=== PATIENT | female | born 1950 | race Caucasian/White ===

== ENCOUNTER 2018-09-28 16:21 | Observation (INO) | payer OTHER ==
[2018-09-28 16:49] VITALS: BMI 31.4
[2018-09-28] MEDS ORDERED: traMADol HCl 50 MG TAB PO SCH (18:15)
[2018-09-28] MEDS ORDERED: Ondansetron ODT 4 MG TAB PO PRN (18:19)
[2018-09-28] MEDS ORDERED: Acetaminophen 325 MG TAB PO PRN (18:19)
[2018-09-28] MEDS ORDERED: Ondansetron PF 4 MG/2 ML Vial IVP PRN (18:19)
[2018-09-28] MEDS ORDERED: Sodium Chloride 0.9% 1,000 ML IV SCH (18:30)
[2018-09-28] MEDS ORDERED: Fioricet 325/50/40 mg Tablet PO PRN (19:04)
[2018-09-28] MEDS ORDERED: Zolpidem Tartrate 5 MG TAB PO PRN (19:05)
[2018-09-28 19:44] LABS: #Eosinphils 0.1 thou/uL (0.0-0.7); #Lymphocytes 1.6 thou/uL (1.20-3.40); #Monocytes 0.8 thou/uL (0.11-0.59); #Neutrophils 6.5 thou/uL (1.40-6.50); %Basophils 0.1 % (0.0-1.0); %Eosinophils 1.5 % (0.0-10.0); %Lymphocytes 17.8 % (21.0-51.0); %Monocytes 8.4 % (0.0-10.0); %Neutrophils 72.3 % (42.0-75.0); Hemoglobin 10.4 g/dL (12.0-16.0); Mean Corpuscular HGB CONC 31.8 g/dL (32.0-36.0); Mean Corpuscular Hemoglobin 23.4 pg (27.0-31.0); Mean Corpuscular Volume 73.7 fL (78.0-98.0); Mean Platelet Volume 7.6 fL (7.4-10.4); Platelet Count 423 thou/uL (130-400); RBC Distribution Width 16.3 % (11.5-14.5); Red Blood Cell (RBC) Count 4.46 mill/uL (4.20-5.40)
[2018-09-28 20:07] LABS: ALT (SGPT) 18 U/L (8-55); AST (SGOT) 29 U/L (5-34); Albumin 3.9 g/dL (3.4-4.8); Alkaline Phosphatase 193 U/L (40-150); Anion Gap 18 mmol/L (10-20); BUN (Urea Nitrogen) 32 mg/dL (9.8-20.1); Bilirubin, Total 0.4 mg/dL (0.2-1.2); Calc. Creatinine Clearance 52 mL/min (70-130); Calcium 9.6 mg/dL (7.8-10.44); Carbon Dioxide 26 mmol/L (23-31); Chloride 91 mmol/L (98-107); Estimated GFR-MDRD 44; Globulin 4.2 g/dL (2.4-3.5); Glucose 131 mg/dL (80-115); Potassium 4.3 mmol/L (3.5-5.1); Protein, Total 8.1 g/dL (6.0-8.3); Sodium 131 mmol/L (136-145)
[2018-09-28 20:10] LABS: Anisocytosis SLIGHT = 6-15 cells (100X) (0-5/hpf); Hypochromia SLIGHT = 6-15 cells (100X) (0-5/hpf); MDiff Complete? YES; Microcytosis SLIGHT = 6-15 cells (100X) (0-5/hpf); Ovalocytes SLIGHT = 2-5 cells (100X) (0-1/hpf); PLT Morphology Comment Appears Increased; Polychromasia SLIGHT = 2-3 cells (100X) (0-2/hpf)
[2018-09-28] MEDS ORDERED: Atorvastatin Calcium 40 MG TAB PO SCH (21:00)
[2018-09-28] MEDS: Senokot S 8.6-50 MG TAB PO SCH (21:30)
--- NOTE | 2018-09-28 23:04 | ULT ---
CAROTID ULTRASOUND: 09/28/18 HISTORY: Transient ischemic attack. COMPARISON: None. TECHNIQUE: Pate scale, color flow, doppler imaging with spectral waveform analysis performed in the carotid and vertebral arteries. FINDINGS: There is calcified plaque in the right carotid bifurcation and proximal internal carotid artery. Peak systolic velocity in the common carotid artery is 173.2 cm/s. Peak systolic velocity in the internal carotid artery is 331.7 cm/s. Systolic ICA/CCA ratio is 1.92. LEFT CAROTID: There is minimal noncalcified plaque in the left carotid bifurcation. Peak systolic velocity in the c ommon carotid artery is 105 cm/s. Peak systolic velocity in the internal carotid artery is 142 cm/s. Systolic ICA/CCA ratio is 1.4. Antegrade flow in both vertebral arteries. IMPRESSION: Sonographic evidence of severe (greater than 70%) stenosis involving the right internal carotid arter y. Further interrogation with CT angiogram of the neck is recommended. POS: [facility]
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
[2018-09-29] MEDS: traMADol HCl 50 MG TAB PO PRN ×3 (02:05→16:14)
[2018-09-29 05:11] LABS: #Eosinphils 0.2 thou/uL (0.0-0.7); #Lymphocytes 2.6 thou/uL (1.20-3.40); #Monocytes 1.3 thou/uL (0.11-0.59); #Neutrophils 5.5 thou/uL (1.40-6.50); %Basophils 0.5 % (0.0-1.0); %Eosinophils 2.2 % (0.0-10.0); %Lymphocytes 27.4 % (21.0-51.0); %Monocytes 13.4 % (0.0-10.0); %Neutrophils 56.6 % (42.0-75.0); Mean Corpuscular Hemoglobin 23.6 pg (27.0-31.0); Mean Corpuscular Volume 73.9 fL (78.0-98.0); Mean Platelet Volume 7.6 fL (7.4-10.4); Platelet Count 403 thou/uL (130-400); RBC Distribution Width 16.4 % (11.5-14.5); Red Blood Cell (RBC) Count 4.22 mill/uL (4.20-5.40); White Blood Cell (WBC) Count 9.7 thou/uL (4.8-10.8)
[2018-09-29 05:26] LABS: ALT (SGPT) 16 U/L (8-55); AST (SGOT) 23 U/L (5-34); Albumin 3.7 g/dL (3.4-4.8); Alkaline Phosphatase 177 U/L (40-150); Anion Gap 15 mmol/L (10-20); BUN (Urea Nitrogen) 36 mg/dL (9.8-20.1); Bilirubin, Total 0.3 mg/dL (0.2-1.2); Calc. Creatinine Clearance 57 mL/min (70-130); Calcium 9.7 mg/dL (7.8-10.44); Carbon Dioxide 30 mmol/L (23-31); Cardiac Risk 5.6 (Less than 4.5); Chloride 93 mmol/L (98-107); Cholesterol 202 mg/dl (< 200 Desired); Estimated GFR-MDRD 48; Globulin 3.8 g/dL (2.4-3.5); Glucose 113 mg/dL (80-115); HDL Cholesterol 36 mg/dL (>60 Neg Risk); LDL Cholesterol, Calculated 134 mg/dL; Potassium 4.2 mmol/L (3.5-5.1); Protein, Total 7.5 g/dL (6.0-8.3); Sodium 134 mmol/L (136-145); Triglycerides 159 mg/dL (Less than 150)
--- NOTE | 2018-09-29 08:06 | PDOC.PN ---
- Subjective Encounter Start Date: 09/29/18 Encounter Start Time: 08:05 Subjective: Feeling significantly better. Back to baseline. Mobilising independently. -: No headaches, vision changes. No n/v. Denies abdo pain. Eating/drinking. -: Denies any CP, sob. No weakness, dizziness, or paraesthesias. Constipated. - Objective Vital Signs & Weight: Vital Signs (12 hours) Temp Pulse Resp BP Pulse Ox 09/29/18 07:41 98.4 F 85 18 135/62 91 L 09/29/18 03:46 98.9 F 79 16 130/60 94 L 09/29/18 00:20 98.5 F 87 16 129/59 L 94 L Weight Weight 160 lb I&O: 09/28/18 09/29/18 09/30/18 06:59 06:59 06:59 Intake Total 240 Balance 240 Result Diagrams: 09/29/18 04:36 09/29/18 04:36 Phys Exam - Physical Examination Constitutional: NAD HEENT: PERRLA, moist MMs, sclera anicteric, oral pharynx no lesions Neck: no nodes, supple, full ROM Respiratory: clear to auscultation bilateral Cardiovascular: RRR Gastrointestinal: soft, non-tender, no distention, positive bowel sounds Musculoskeletal: no edema, pulses present Neurological: non-focal, normal sensation, moves all 4 limbs Strength 5/5 in all limbs. No cerebellar signs. Gait normal. Psychiatric: normal affect, A&O x 3 Skin: no rash, cap refill <2 seconds Dx/Plan - Plan cont current plan of care Senna 2 tab PO BID for constipation. -: Awaiting Neuro and Brain MRI. -: S/p Carotid US: >70% stenosis in Right carotid. -: CTA Head/neck requested. * .
[2018-09-29] MEDS: Senokot S 8.6-50 MG TAB PO SCH (09:22)
[2018-09-29 11:35] VITALS: TEMP 98.3
--- NOTE | 2018-09-29 12:29 | MRI ---
MRI BRAIN NONCONTRAST: History TIA. FINDINGS: There is no evidence of acute intracranial hemorrhage or infarct. Ventricles appear normal in size, shape, and position. There is no mass effect or shift of midline structures. Mild chronic ischemic small vessel changes throughout the periventricular white matter of each cerebral hemisphere. Mucosa l thickening left mastoid air cells. IMPRESSION: No acute intracranial abnormalities are demonstrated. POS: [facility]
--- NOTE | 2018-09-29 13:42 | CT ---
CT ARTERIOGRAM NECK WITH IV CONTRAST AND 3D MIP IMAGING CT ARTERIOGRAM HEAD WITH IV CONTRAST AND 3D MIP IMAGING CT BRAIN WITH AND WITHOUT IV CONTRAST: HISTORY: There is no evidence of acute intracranial hemorrhage or infarct. Ventricles appear normal in size, shape, and position. There is no mass effect, shift of midline structures, or abnormal areas of cont rast enhancement. Normal branching of the great vessels at the aortic arch. Reactive-appearing lymph nodes within the partially visualized upper mediastinum. Mild arterial calcification at the aortic arch. Good flow i nto each carotid and vertebral system. At the right carotid bifurcation, there is prominent calcification short-segment focus of approximate ly 85% stenosis. Within the mid right cervical ICA, there is prominent calcified and noncalcified pl aque with a long segment area of high-grade stenosis estimated at 90%. Good flow into the intracrani al system. On the left, mild plaque without significant stenosis of the carotid system. [place] is intact. Good flow into each cerebral and cerebellar system. IMPRESSION: Prominent plaque limited to the right carotid system where there is multifocal high-grade stenoses of the right internal carotid artery. POS: [facility]
[2018-09-29] MEDS ORDERED: Iopamidol 370 76% 100 ML VIAL ONE (14:34)
[2018-09-29 16:11] VITALS: BP 133/63
--- NOTE | 2018-09-29 19:59 | DIS ---
DATE OF ADMISSION: 09/28/2018 DATE OF DISCHARGE: 09/29/2018 DISCHARGE DIAGNOSES: 1. Transient ischemic attack with symptoms completely resolved. 2. Constipation. 3. Hypertension. 4. Hyperlipidemia. 5. Chronic diastolic congestive heart failure. CONSULTING PHYSICIANS: Neuro via telemedicine. HOSPITAL COURSE & ROS: Ms. Han is a 67-year-old woman, who was transferred here from [place] yesterday on September 28 after developing stroke-like symptoms immediately after waking. It is unclear what time she woke up, but she states she experienced tingling and weakness in her right hand as well as right leg with slurred speech and difficulty forming words. Per outside notes, she was noted to have a facial droop on the right side as well as deviation of her tongue to the right. The patient was immediately transferred to the critical care unit. She underwent a CT of the head that showed no acute changes. The patient states her symptoms gradually improved throughout the day. Her transfer was arranged to come here per the request of her daughter. Upon arrival here, the patient had a complete resolution of the right-sided weakness and paresthesias. She also had improvement in her vision. She had a slightly slurred speech, but no facial drooping or tongue deviation on exam. She was able to stand and showed no cerebellar signs. Her vision was intact. She underwent further investigations with an MRI of the brain that showed no acute abnormalities. She did undergo a carotid Doppler that demonstrated greater than 70% stenosis in the right internal carotid artery, felt to be severe. Further imaging was recommended. She underwent a CT angiography of the head and neck, which showed a prominent plaque in the right carotid system with multifocal high-grade stenosis of the right internal carotid artery. The patient was assessed for swallowing difficulties upon initial arrival and had a satisfactory bedside swallow assessment. She has continued to tolerate a regular diet without any difficulties. At this time, the patient feels completely well and with no residual symptoms whatsoever. Her speech has fully normalized. She denies having any weakness whatsoever and has been mobilizing to and from the toilet without any difficulty. She is very eager to go home. Of note, the patient had been in [place] after being re-admitted with acute on chronic CHF, presumed to be due to incorrectly taking her medications. She was given recommendations for appropriate management of her CHF, which she understands and will continue as an outpatient. The patient's case was discussed with Dr. Shanks, who did advise a followup with Dr. Skaggs as an outpatient. It was felt she did not require intervention. The patient is doing well as mentioned above. She has been urinating without difficulties. Denies having any constipation or diarrhea. No headaches or dizziness. Denies having any chest pain, palpitations, or shortness of breath. All other review of systems are negative. PHYSICAL EXAMINATION: GENERAL: The patient appears comfortable, lying in bed, in no acute distress. VITAL SIGNS: Temperature 98.3, pulse 73, respirations 20, O2 saturation 93% on room air, and blood pressure 132/63. HEENT: Normocephalic and atraumatic. Pupils are equal, round, and reactive to light. Sclerae without icterus. Oropharynx is clear. NECK: Supple without lymphadenopathy. LUNGS: Clear to auscultation bilaterally. CARDIAC: Regular rhythm. ABDOMEN: Soft, nontender, and nondistended with bowel sounds present. EXTREMITIES: No clubbing, cyanosis, or edema. NEUROLOGIC: Alert and oriented x3. No facial weakness or numbness. Facial movements are normal. Power 5/5 in all limbs. Normal gait. No tongue deviation. LABORATORY DATA: White blood count 9.7, hemoglobin 10, hematocrit 31.2, and platelets 403. Sodium 134, potassium 4.2, BUN 36, creatinine 1.13, EGFR 48, total bilirubin 0.3, AST 23, and ALT 16. BNP 147.8. Albumin 3.7, triglycerides 159, cholesterol 202, LDL 134, and HDL 36. IMAGING DATA: 1. Carotid Doppler study 09/28/2018: Sonographic evidence of severe greater than 70% stenosis involving the right internal carotid artery. CT angiogram of the neck recommended. 2. CT angiography of the head and neck showed prominent plaque noted to the right carotid system with multifocal high-grade stenosis of the right internal carotid artery. Good flow into the intracranial system. [place] of [place] is intact. Good flow into each cerebral and cerebellar system. 3. Brain MRI, 09/29/2018, no acute intracranial abnormalities demonstrated. PROCEDURES: None. DISCHARGE MEDICATIONS: Prescriptions given for; 1. Atorvastatin 40 mg p.o. at bedtime. 2. Senokot 2 tablets p.o. b.i.d. 3. Aspirin 81 mg p.o. daily. The patient advised to resume home medications. CONDITION: Stable at discharge. ACTIVITY: As tolerated. DIET: Heart healthy diet. FOLLOWUP: The patient was advised to follow up with her primary care physician within 1 to 2 weeks. Also to follow up with Dr. Skaggs for discussion of surgical interventions given the high-grade stenosis in the right internal carotid artery. DISPOSITION: The patient cleared for discharge home on 09/29/2018. Job ID: [id number] [facility]
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
== END 2018-09-29 16:49 | disposition home or self-care (01) ==
LOC: 2SE 16:21
PROVIDERS: ADMIT Internal Medicine; ATTEND Internal Medicine
DX: G45.9 Transient cerebral ischemic attack, unspecified (principal); K59.00 Constipation, unspecified; I11.0 Hypertensive heart disease with heart failure; I50.32 Chronic diastolic (congestive) heart failure; E78.5 Hyperlipidemia, unspecified; G43.909 Migraine, unspecified, not intractable, without status migrainosus; Z87.891 Personal history of nicotine dependence; Z86.12 Personal history of poliomyelitis; Z88.1 Allergy status to other antibiotic agents; Z88.8 Allergy status to other drugs, medicaments and biological substances; Z91.018 Allergy to other foods; Z90.49 Acquired absence of other specified parts of digestive tract; Z90.710 Acquired absence of both cervix and uterus; Z90.89 Acquired absence of other organs; Z79.2 Long term (current) use of antibiotics; Z79.51 Long term (current) use of inhaled steroids; Z79.82 Long term (current) use of aspirin; Z79.899 Other long term (current) drug therapy; Z98.890 Other specified postprocedural states
CPT/HCPCS: 36415; 70496; 70498; 70551; 80053; 80061; 83880; 85025; 93005; 93010; 93880; G0378; G8978-GP-CK; G8979-GP-CK; G8980-GP-CK

== ENCOUNTER 2018-11-19 06:21 | Inpatient (IN) | payer OTHER ==
[2018-11-19] MEDS ORDERED: Protamine Sulfate 50 MG/5 ML VIAL ONE (06:26)
[2018-11-19] MEDS ORDERED: Heparin 5,000 UNITS/ML VIAL ONE (06:26)
[2018-11-19] MEDS ORDERED: Scopolamine 1.5 mg/72 hour Patch ONE (07:12)
[2018-11-19 07:30] LABS: #Eosinphils 0.2 thou/uL (0.0-0.7); #Lymphocytes 2.2 thou/uL (1.20-3.40); #Monocytes 0.6 thou/uL (0.11-0.59); #Neutrophils 4.4 thou/uL (1.40-6.50); %Basophils 0.2 % (0.0-1.0); %Lymphocytes 29.3 % (21.0-51.0); %Monocytes 7.6 % (0.0-10.0); %Neutrophils 59.9 % (42.0-75.0); Hemoglobin 10.5 g/dL (12.0-16.0); Mean Corpuscular HGB CONC 31.7 g/dL (32.0-36.0); Mean Corpuscular Hemoglobin 23.8 pg (27.0-31.0); Mean Corpuscular Volume 75.1 fL (78.0-98.0); Mean Platelet Volume 8.5 fL (7.4-10.4); Platelet Count 307 thou/uL (130-400); RBC Distribution Width 17.2 % (11.5-14.5); Red Blood Cell (RBC) Count 4.39 mill/uL (4.20-5.40); White Blood Cell (WBC) Count 7.4 thou/uL (4.8-10.8)
[2018-11-19 07:47] LABS: Anion Gap 14 mmol/L (10-20); BUN (Urea Nitrogen) 31 mg/dL (9.8-20.1); Calc. Creatinine Clearance 65 mL/min (70-130); Calcium 10.3 mg/dL (7.8-10.44); Carbon Dioxide 20 mmol/L (23-31); Chloride 106 mmol/L (98-107); Estimated GFR-MDRD 57; Glucose 97 mg/dL (80-115); Potassium 4.3 mmol/L (3.5-5.1); Sodium 136 mmol/L (136-145)
[2018-11-19] MEDS ORDERED: Fentanyl 100 MCG/2 ML VIAL ONE ×2 (07:51→10:42)
[2018-11-19] MEDS ORDERED: Bupivacaine 0.25% HCL 30 ML VIAL ONE (08:14)
[2018-11-19] MEDS ORDERED: Bupivacaine HCl 0.5%/Epinephrine 1:200,000/PF 30 ml Vial ONE (08:14)
[2018-11-19] MEDS ORDERED: Promethazine HCl 25 MG/ML VIAL IM PRN (10:10)
[2018-11-19] MEDS ORDERED: PACU-Morphine 4MG/ML VIAL SLOW IVP PRN (10:10)
[2018-11-19] MEDS ORDERED: Meperidine HCl/PF 25 MG/ML VIAL SLOW IVP PRN (10:10)
[2018-11-19] MEDS ORDERED: Promethazine HCl 25 MG/ML VIAL SLOW IVP PRN (10:10)
--- NOTE | 2018-11-19 10:13 | OP ---
DATE OF PROCEDURE: 11/19/2018 PREOPERATIVE DIAGNOSIS: Critical right carotid stenosis. PROCEDURE PERFORMED: Right carotid endarterectomy with bovine patch angioplasty. ANESTHESIA: General. ESTIMATED BLOOD LOSS: Less than 100. DESCRIPTION OF PROCEDURE: After adequate anesthesia had been obtained, the patient was prepped and draped. Ultrasound had been utilized to chad the site of the bifurcation. The incision was carried through the platysma, rotating sternocleidomastoid muscle laterally. The common carotid artery was isolated with the tape and then dissection carried distally to the level of the hypoglossal nerve. The stylohyoid muscle was mobilized inferiorly. Superiorly, the incision was extended slightly due to the fact that the patient had two discrete lesions on CT scan at the bulb and then about 2 to 2.5 cm distally. After 7500 units of heparin with a good ACT level, clamps were applied. Arteriotomy performed. Somewhat difficult to cut through the plaque in the distal anastomosis resulting in a slight spiral of the incision. Following placement of a 10-Persian shunt with excellent backbleeding, endarterectomy was performed. The tapering was satisfactory distally and no tacking sutures were required. After irrigating any loose debris, the artery was closed with a bovine patch using running 6-0 Prolene suture. Prior to completing the suture line, the shunt was removed. The vessels were backflushed and forward flushed and then flow restored up the external and then internal carotid artery. Protamine was given to partially reverse the heparin and after obtaining hemostasis, the wound was closed in layers after infiltrating 0.5% Marcaine with epinephrine into the wound. The patient tolerated the procedure. Job ID: [id number]
[2018-11-19] MEDS ORDERED: hydrALAZINE 20 MG/ML VIAL ONE (10:32)
[2018-11-19] MEDS ORDERED: Nitroglycerin 50 MG/250 ML BOT 250 ML IVPB PRN (11:05)
[2018-11-19] MEDS ORDERED: Fentanyl 100 MCG/2 ML VIAL SLOW IVP PRN ×2 (11:05)
[2018-11-19] MEDS ORDERED: Ondansetron PF 4 MG/2 ML Vial IVP PRN (11:05)
[2018-11-19] MEDS ORDERED: CEFAZOLIN/Water 2 GM/20 ML SYRINGE SLOW IVP SCH (11:05)
[2018-11-19] MEDS ORDERED: HYDROcodone/Acetaminophen 5/325 mg Tablet PO PRN ×2 (11:05)
[2018-11-19] MEDS ORDERED: Phenylephrine 10 MG/NS 250 ML 250 ML IVPB PRN (11:05)
[2018-11-19] MEDS: Sodium Chloride 0.9% 1,000 ML IV SCH (11:36)
[2018-11-19] MEDS: Promethazine HCl 25 MG/ML VIAL SLOW IVP PRN ×3 (11:46→23:00)
[2018-11-19 12:16] VITALS: BMI 32.5
[2018-11-19] MEDS: CEFAZOLIN 2 GM in Premix Bag 1 BAG IVPB SCH ×2 (14:23→23:00)
[2018-11-19] MEDS: hydrALAZINE 20 MG/ML VIAL SLOW IVP PRN ×2 (14:24→23:06)
[2018-11-19] MEDS ORDERED: Glycopyrrolate 0.2 MG/ML 5 ML SYRINGE ONE (15:02)
[2018-11-19] MEDS ORDERED: Lidocaine 1% PF 5 ML VIAL ONE (15:02)
[2018-11-19] MEDS ORDERED: Heparin 10,000 UNITS/ 10 ML VIAL ONE (15:02)
[2018-11-19] MEDS ORDERED: PROPOFOL 200 MG/20 ML VIAL ONE (15:02)
[2018-11-19] MEDS ORDERED: Ondansetron PF 4 MG/2 ML Vial ONE (15:02)
[2018-11-19] MEDS ORDERED: Rocuronium Bromide 10 MG/ML (10ML VIAL) ONE (15:02)
[2018-11-19] MEDS ORDERED: traMADol HCl 50 MG TAB PO PRN (16:07)
[2018-11-19] MEDS ORDERED: Acetaminophen 1,000 MG in Premix Bag 1 BAG IVPB SCH (16:15)
[2018-11-19] MEDS: Acetaminophen 325 MG TAB PO PRN (19:52)
[2018-11-19] MEDS: Acetaminophen 1,000 MG in Premix Bag 1 BAG IVPB PRN (21:16)
[2018-11-19] MEDS: Ondansetron PF 4 MG/2 ML Vial IVP PRN (21:16)
[2018-11-20] MEDS: Ondansetron PF 4 MG/2 ML Vial IVP PRN ×3 (02:11→16:20)
[2018-11-20] MEDS: Promethazine HCl 25 MG/ML VIAL SLOW IVP PRN ×2 (04:32→10:39)
[2018-11-20] MEDS: Acetaminophen 1,000 MG in Premix Bag 1 BAG IVPB PRN (04:38)
[2018-11-20] MEDS ORDERED: Zolpidem Tartrate 5 MG TAB PO PRN (07:08)
[2018-11-20] MEDS: Aspirin Chewable 81 MG TAB PO SCH (07:45)
[2018-11-20] MEDS: Carvedilol 3.125 MG TAB PO SCH ×2 (07:45→16:20)
[2018-11-20] MEDS: CEFAZOLIN 2 GM in Premix Bag 1 BAG IVPB SCH (07:46)
[2018-11-20] MEDS: Sodium Chloride 0.9% 1,000 ML IV SCH (08:32)
[2018-11-20 10:28] LABS: #Monocytes 0.7 thou/uL (0.11-0.59); #Neutrophils 8.8 thou/uL (1.40-6.50); %Basophils 0.1 % (0.0-1.0); %Eosinophils 0.2 % (0.0-10.0); %Lymphocytes 9.6 % (21.0-51.0); %Monocytes 6.3 % (0.0-10.0); %Neutrophils 83.9 % (42.0-75.0); Hemoglobin 9.7 g/dL (12.0-16.0); Mean Corpuscular HGB CONC 31.1 g/dL (32.0-36.0); Mean Corpuscular Hemoglobin 23.9 pg (27.0-31.0); Mean Corpuscular Volume 76.9 fL (78.0-98.0); Mean Platelet Volume 7.8 fL (7.4-10.4); Platelet Count 368 thou/uL (130-400); RBC Distribution Width 17.5 % (11.5-14.5); Red Blood Cell (RBC) Count 4.06 mill/uL (4.20-5.40); White Blood Cell (WBC) Count 10.5 thou/uL (4.8-10.8)
[2018-11-20] MEDS: Ibuprofen 800 MG TAB PO PRN ×2 (10:38→18:04)
[2018-11-20 10:45] LABS: Anion Gap 12 mmol/L (10-20); BUN (Urea Nitrogen) 13 mg/dL (9.8-20.1); Calc. Creatinine Clearance 80 mL/min (70-130); Calcium 9.3 mg/dL (7.8-10.44); Carbon Dioxide 24 mmol/L (23-31); Chloride 102 mmol/L (98-107); Estimated GFR-MDRD 70; Glucose 127 mg/dL (80-115); Sodium 134 mmol/L (136-145)
--- NOTE | 2018-11-20 15:33 | CT ---
CT BRAIN NONCONTRAST: 11/20/18 HISTORY: 68-year-old female with headache. FINDINGS: There is no midline shift or any other mass effect. There is no evidence of acute intracranial hemor rhage, large cortical infarct, obstructive hydrocephalus, or extraaxial fluid collection. The calvar ium is intact. There is a tiny focal hypodensity in the head of the left caudate nucleus, and one in the right basal ganglia. Small patchy subtle ill-defined regions of low attenuation in the deep cere bral white matter bilaterally probably representing either mild to moderate chronic white matter isc hemic white matter changes or additional white matter lacunar infarctions. IMPRESSION: 1. No acute intracranial findings. 2. Tiny old lacunar infarction in left caudate nucleus and right basal ganglia. jn [] POS: [facility]
[2018-11-20] MEDS: Ondansetron ODT 4 MG TAB PO PRN (19:37)
[2018-11-21] MEDS: Acetaminophen 325 MG TAB PO PRN ×2 (00:12→04:10)
[2018-11-21] MEDS: Ondansetron ODT 4 MG TAB PO PRN ×2 (00:15→04:10)
[2018-11-21 05:33] VITALS: TEMP 97.9
[2018-11-21 07:40] VITALS: BP 159/66
[2018-11-21] MEDS: Aspirin Chewable 81 MG TAB PO SCH (08:55)
[2018-11-21] MEDS: Carvedilol 3.125 MG TAB PO SCH (08:55)
[2018-11-21] MEDS: Ibuprofen 800 MG TAB PO PRN (08:57)
--- NOTE | 2018-11-21 10:24 | DIS ---
DATE OF ADMISSION: 11/19/2018 DATE OF DISCHARGE: 11/21/2018 This is a 68-year-old female with a critical right carotid stenosis that was found after a left hemispheric TIA. She was admitted at this time and underwent a right carotid endarterectomy with two critical lesions in the common and internal carotid arteries by about 2.5 cm. Postoperative course was notable as predicted based on her past history of nausea after anesthetics, with profound nausea for the 1st 24 hours. This improved slightly over the next 24 hours. She had an accompanying bifrontal and bimaxillary headache. A CT scan was scheduled to rule out any cerebral edema. However, the patient could not get in the CT scanner due to claustrophobia. Neurologic exam was otherwise normal. She will be discharged today to resume her home medicines with the addition of low-dose Coreg for a resting tachycardia, some vxrc-mc-ehpcoyti hypertension which we would like to avoid at this time. No pain medicines would be prescribed. Her incision is healing nicely with some legu-tj-ybiszutn swelling. Discharge and followup instructions were given. Job ID: [id number]
--- NOTE | 2018-11-22 06:59 | EKG ---
Test Reason : Blood Pressure : / mmHG Vent. Rate : 099 BPM Atrial Rate : 099 BPM P-R Int : 168 ms QRS Dur : 094 ms QT Int : 364 ms P-R-T Axes : 068 004 041 degrees QTc Int : 467 ms Sinus rhythm with Premature supraventricular complexes and with occasional Premature ventricular comp lexes Otherwise normal ECG When compared with ECG of 28-SEP-2018 20:50, Premature ventricular complexes are now Present Premature supraventricular complexes are now Present Nonspecific T wave abnormality, improved in Lateral leads Confirmed by DILSHAD MAI ([id number] on 11/22/2018 6:59:25 AM Referred By: PORSCHE Confirmed By:DILSHAD MAI
== END 2018-11-21 11:39 | disposition home or self-care (01) | DRG 39 ==
LOC: SURG A 06:21 → CCU 10:54 → 2SE 11-20 11:26
PROVIDERS: ADMIT Thoracic Surgery (Cardiothoracic Vascular Surgery); ATTEND Thoracic Surgery (Cardiothoracic Vascular Surgery)
PROC: 03CH0ZZ Extirpation of Matter from Right Common Carotid Artery, Open Approach (ICD-10-PCS; principal; 2018-11-19)
PROC: 03UH0KZ Supplement Right Common Carotid Artery with Nonautologous Tissue Substitute, Open Approach (ICD-10-PCS; 2018-11-19)
DX: I65.21 Occlusion and stenosis of right carotid artery (principal); I10 Essential (primary) hypertension; R00.0 Tachycardia, unspecified; Z86.73 Personal history of transient ischemic attack (TIA), and cerebral infarction without residual deficits
CPT/HCPCS: 36415; 70450; 80048; 85025; 93005; 93010; J0131; J0360; J0670; J1642; J1644; J2001; J2405; J2550; J2704; J2720; J3010; Q0162; S0020